=== PATIENT | female | born 1945 | race Caucasian/White ===

== ENCOUNTER 2020-10-25 08:29 | Day surgery (SDC) | payer OTHER ==
[2020-10-23 16:50] VITALS: BMI 26.5
[2020-10-25] MEDS ORDERED: PROPOFOL 20 ML ONE ×4 (09:48)
[2020-10-25 10:56] VITALS: TEMP 98.1
[2020-10-25 12:39] VITALS: BP 122/74; PULSE 76
== END 2020-10-25 12:41 | disposition home or self-care (01) ==
LOC: FASU-ENDO 08:29
PROVIDERS: ATTEND Internal Medicine Gastroenterology
PROC: 0DJD8ZZ Inspection of Lower Intestinal Tract, Via Natural or Artificial Opening Endoscopic (ICD-10-PCS; principal; 2020-10-25 10:31)
DX: K57.30 Diverticulosis of large intestine without perforation or abscess without bleeding (principal); K64.1 Second degree hemorrhoids